=== PATIENT | female | born 1940 | race Caucasian/White ===

== ENCOUNTER 2023-08-16 12:47 | Emergency (ER) | payer MEDICARE ==
[~2023-08-16] VITALS: Ht 160 cm; Wt 81.8 kg
[2023-08-16 14:33] LABS: HEMATOCRIT 45.9 % (36.0-47.0); HEMOGLOBIN 15.3 g/dl (12.0-15.5); LYMPH # 1.3 10^3/uL (1.5-5.0); LYMPH % 14.6 % (24.0-44.0); MEAN CORPUSCULAR HEMOGLOBIN 29.7 pg (27.0-33.0); MEAN CORPUSCULAR HGB CONC 33.3 g/dl (32.0-36.5); MEAN CORPUSCULAR VOLUME 89.1 fl (80.0-96.0); MONO # 0.6 10^3/uL (0.0-0.8); MONO % 6.3 % (2.0-8.0); NEUTROPHILS # 6.9 10^3/uL (1.5-8.5); PLATELET COUNT, AUTOMATED 141 10^3/uL (150-450); RED BLOOD COUNT 5.15 10^6/uL (4.00-5.40); WHITE BLOOD COUNT 8.7 10^3/uL (4.0-10.0)
[2023-08-16 14:41] LABS: ERYTHROCYTE SEDIMENTATION RATE 12 mm/hr (0-30)
[2023-08-16 14:58] LABS: C REACTIVE PROTEIN QUANTITATIV < 0.40 MG/DL (<1.0)
[2023-08-16 15:00] LABS: BLOOD UREA NITROGEN 19 MG/DL (9-23); CALCIUM LEVEL 8.8 MG/DL (8.3-10.6); CARBON DIOXIDE LEVEL 32 MMOL/L (20-31); CHLORIDE LEVEL 107 MMOL/L (98-107); CREATININE FOR GFR 1.12 MG/DL (0.55-1.30); GLOMERULAR FILTRATION RATE 49.6 (>32); GLUCOSE, FASTING 102 MG/DL (74-106); POTASSIUM SERUM 3.8 MMOL/L (3.5-5.1); SODIUM LEVEL 143 MMOL/L (136-145)
[2023-08-16] MEDS: PROPARACAINE 0.5% OPHTH SOL 15ML OS ONE (16:17)
[2023-08-16] MEDS: FLUORESCEIN OPHTH 1MG STRIP OS ONE (16:18)
[2023-08-16] MEDS ORDERED: AMOX875T2 PO (16:20)
[2023-08-16] MEDS ORDERED: REFR0.5D8 OD (16:20)
[2023-08-16 16:24] VITALS: BP 182/71; TEMP 98.1; O2SAT 99
[2023-08-16] MEDS: AUGMENTIN 875 MG TAB PO ONE (16:25)
== END 2023-08-16 16:29 | disposition home or self-care (01) ==
LOC: M ED 12:47
DX: L03.213 Periorbital cellulitis (principal); H00.025 Hordeolum internum left lower eyelid; I10 Essential (primary) hypertension; E78.5 Hyperlipidemia, unspecified; I25.2 Old myocardial infarction; Z79.2 Long term (current) use of antibiotics; Z79.899 Other long term (current) drug therapy